=== PATIENT | female | born 1955 | race Caucasian/White ===

== ENCOUNTER 2018-01-08 21:12 | Emergency (ER) | payer MEDICARE, MEDICAID ==
[~2018-01-08] VITALS: Ht 539.5 cm; Wt 45.7 kg
[~2018-01-08 21:12] MED LIST: HYDR-565 PO; LEVO25TA2 PO; LINE600T36 CORPAK; METH20TA PO
[2018-01-08] MEDS ORDERED: acetaminophen 325mg tablet PO ONE (22:10)
[2018-01-08 23:31] VITALS: BP 129/75
== END 2018-01-08 23:32 | disposition home or self-care (01) ==
LOC: ER 21:12
DX: S00.83XA Contusion of other part of head, initial encounter (principal); J44.9 Chronic obstructive pulmonary disease, unspecified; Z98.890 Other specified postprocedural states; Z98.84 Bariatric surgery status; Z90.710 Acquired absence of both cervix and uterus; Z88.8 Allergy status to other drugs, medicaments and biological substances; Z79.899 Other long term (current) drug therapy; W22.8XXA Striking against or struck by other objects, initial encounter; Y93.89 Activity, other specified; Y92.89 Other specified places as the place of occurrence of the external cause; Y99.8 Other external cause status
CPT/HCPCS: 70450; 99284